=== PATIENT | female | born 1965 | race Caucasian/White ===

== ENCOUNTER 2016-12-18 05:54 | Day surgery (SDC) | payer OTHER ==
[2016-12-15 12:32] VITALS: BMI 31.3
[2016-12-18] MEDS ORDERED: MIDAZOLAM HCL 2 MG/2 ML SINGLE DOSE VIAL ONE ×2 (06:46→07:33)
[2016-12-18] MEDS ORDERED: DEXAMETHASONE SOD PHOSPHATE/PF 10 MG/ML SDV ONE (06:46)
[2016-12-18] MEDS ORDERED: ROPIVACAINE HCL 0.5% 30ML VIAL ONE (06:46)
[2016-12-18] MEDS ORDERED: BUPIVACAINE HCL/EPINEPHRINE/PF 30 ML VIAL IJ ONE (06:57)
[2016-12-18] MEDS ORDERED: EPINEPHrine 1:1,000 1 MG/1 ML - 30ML VIAL (INJECTION) ONE (06:57)
--- NOTE | 2016-12-18 07:11 | HP ---
Admitting History and Physical - Admission Chief Complaint: Left shoulder pain History of Present Illness: 51 yo F presents c/o left shoulder pain that has progressively worsened over the past year. She has some decreased motion and weakness. She has tried injections that have offered little to no relief. She presents today for a planned left shoulder arthroscopy, decompression, distal clavicle excision with Dr. Hernandez. History Source: Patient Limitations to Obtaining History: No Limitations - Past Medical History JUDICIAL CLERK: No: Dementia, Migraine, Seizure Cardiovascular: No: CAD, CHF, HTN, Hyperlipdemia Pulmonary: Yes: Asthma (Asthma in the past, not currently using any medication or inhalers.). No: Cancer, COPD Gastrointestinal: Yes: GERD Renal/: No: Renal Failure, Renal Inusuff ...LMP: 10/24/16 Heme/Onc: No: Anemia Endocrine: No: Diabetes Mellitus, Hyperthyroidism, Hypothyroidism - Past Surgical History Past Surgical History: Yes: Tubal Ligation Additional Past Surgical History: DeQuervain's tendon release (right) - Smoking History Smoking history: Former smoker Have you smoked in the past 12 months: No If you are a former smoker, when did you quit?: 2012 - Alcohol/Substance Use Hx Alcohol Use: Yes (WINE AT NIGHT) Home Medications - Allergies Allergies/Adverse Reactions: Allergies Allergy/AdvReac Type Severity Reaction Status Date / Time Penicillins AdvReac Intermediate N/V AND Verified 12/15/16 12:00 DIARRHEA - Home Medications Home Medications: Ambulatory Orders Cetirizine HCl [Zyrtec -] 10 mg PO HS 12/15/16 Chlordiazepoxide/Clidinium Br [Librax Capsule] 1 each PO DAILY 12/15/16 Diphenoxylate HCl/Atropine [Lomotil Tablet] 1 each PO DAILY PRN 12/15/16 Omeprazole/Sodium Bicarbonate [Zegerid 20mg (RX)] 1 each PO DAILY 12/15/16 Ropinirole HCl [Requip] 0.25 mg PO HS 12/15/16 Review of Systems - Review of Systems Constitutional: reports: No Symptoms. denies: Chills, Fever HENT: reports: No Symptoms Cardiovascular: reports: No Symptoms. denies: Chest Pain, Palpitations Respiratory: reports: No Symptoms. denies: Cough, SOB Gastrointestinal: reports: No Symptoms. denies: Abdominal Pain, Nausea, Vomiting Genitourinary: reports: No Symptoms. denies: Burning Musculoskeletal: reports: Decreased ROM (Left shoulder), Joint Pain (Left shoulder) Integumentary: denies: Bruising, Rash Neurological: reports: No Symptoms. denies: Headache Hematology/Lymphatic: reports: No Symptoms. denies: Easily Bruised, Excessive Bleeding Physical Examination Vital Signs: Vital Signs Temperature 98 F 12/18/16 06:25 Pulse Rate 84 12/18/16 06:25 Respiratory Rate 18 12/18/16 06:25 Blood Pressure 136/80 12/18/16 06:25 O2 Sat by Pulse Oximetry (%) 98 12/18/16 06:25 Constitutional: Yes: Well Nourished, No Distress Eyes: Yes: WNL HENT: Yes: Atraumatic, Normocephalic Cardiovascular: Yes: Regular Rate and Rhythm Respiratory: Yes: Regular, CTA Bilaterally Gastrointestinal: Yes: WNL, Normal Bowel Sounds, Soft Musculoskeletal: Yes: Joint Stiffness (Left shoulder) Extremities: Yes: WNL. No: Calf Tenderness Integumentary: Yes: WNL Neurological: Yes: Alert, Oriented Assessment/Plan 51 to F presents for planned left shoulder arthroscopy, decompression, distal clavicle excision with Dr. Hernandez.
[2016-12-18] MEDS ORDERED: PROPOFOL 20 ML ONE ×3 (07:16→08:14)
[2016-12-18] MEDS ORDERED: ceFAZolin SODIUM 1 GM VIAL ONE (07:47)
--- NOTE | 2016-12-18 08:54 | OP ---
Operative Note - Note: Operative Date: 12/18/16 Pre-Operative Diagnosis: left shoulder ACJ OA, Sub ac bursitis Operation: LEft shoulder arthroscopy, decompression, distal clavicle excision. Post-Operative Diagnosis: Same as Pre-op Surgeon: Cristofer Hernandez Anesthesiologist/THERMODYNAMICS PROFESSOR: Kb Lakhani Anesthesia: General Operative Report Dictated: Yes
--- NOTE | 2016-12-18 08:56 | DS ---
Physical Examination Vital Signs: Vital Signs Temperature 98 F 12/18/16 06:25 Pulse Rate 84 12/18/16 06:25 Respiratory Rate 18 12/18/16 06:25 Blood Pressure 136/80 12/18/16 06:25 O2 Sat by Pulse Oximetry (%) 98 12/18/16 06:25 Discharge Summary Reason For Visit: LEFT SHOULDER AC JOINT OSTEOARTHRITIS Condition: Good - Instructions Diet, Activity, Other Instructions: Post Operative Instructions: Shoulder Arthroscopy Dr Cristofer Hernandez 1. Pain following a Shoulder Arthroscopy is variable and can be significant. Some patients will have more pain than others. You have been provided with a prescription for medication that contains a narcotic. You are not allowed to drive while on this medication. You should NOT take Tylenol (Acetaminophen) when taking the pain medication ( it will result in an overdose). Feel free to take medications such as Ibuprofen or Naprosyn in addition to the pain medicine if you do not have any problems with the NSAID class of medications. 2. Apply ice to the shoulder for 15 minutes every hour. You may continue this for as many days as necessary. 3. You may find sleeping on an incline (reclining chair) to be more comfortable for the first few days. 4 You may remove your sling when the arm is comfortable. 5. You may use the arm as tolerated. 6. You may remove the bandages in 24 hours. You may shower at that point. 7. Place band-aids on the sutures after your shower.Do not put any creams or lotions on the incision until after the sutures are removed. 8. Please call the office to schedule a visit to have your sutures removed. 9. If for any reason you believe you may have an infection or are concerned, please feel free to call me. I can be reached through our office number 24 hours a day. 10. Please call our office with any questions; we will review the surgical findings during your post-operative visit. Disposition: HOME - Home Medications Comprehensive Discharge Medication List: Ambulatory Orders Cetirizine HCl [Zyrtec -] 10 mg PO HS 12/15/16 Chlordiazepoxide/Clidinium Br [Librax Capsule] 1 each PO DAILY 12/15/16 Diphenoxylate HCl/Atropine [Lomotil Tablet] 1 each PO DAILY PRN 12/15/16 Omeprazole/Sodium Bicarbonate [Zegerid 20mg (RX)] 1 each PO DAILY 12/15/16 Ropinirole HCl [Requip] 0.25 mg PO HS 12/15/16
--- NOTE | 2016-12-18 09:14 | SURG ---
Surgery Tape Sewer Note Tape Sewer: Elizabeth Velez PA-C Date of Service: 12/18/16 Diagnosis: left shoulder ACJ OA, Sub ac bursitis Procedure: left shoulder arthroscopy, decompression, distal clavicle excision I was present for the entirety of the operative procedure. For further detail, please refer to operative report. Visit type - Case Type Case Type: Scheduled Admission - Emergency Emergency Visit: No - New patient This patient is new to me today: Yes Date on this admission: 12/18/16 - Critical Care Critical Care patient: No
[2016-12-18] MEDS ORDERED: LACTATED RINGERS SOLUTION 1,000 ML IV SCH (10:30)
[2016-12-18] MEDS ORDERED: ONDANSETRON 4 MG/2 ML VIAL IVPUSH PRN (10:55)
[2016-12-18 11:00] VITALS: PULSE 77
[2016-12-18 11:07] VITALS: BP 118/75; TEMP 97.9
[2016-12-18] MEDS ORDERED: IBUPROFEN 400 MG TABLET (FP) PO ONE (12:00)
--- NOTE | 2016-12-22 16:19 | PATH ---
Surgical Pathology Report Patient Name: POOJA BRITT [facility]. Rec. #: [id number] /Age/Gender: 1965 (Age: 51) / F Account: [id number] Location: [facility] AM[facility] Taken: 12/18/2016 Received: 12/18/2016 Reported: 12/22/2016 Physicians: Cristofer Hernandez M.D. Specimen(s) Received LEFT SHOULDER SHAVINGS Clinical History Left shoulder a.c. joint osteoarthritis Final Diagnosis SHOULDER, LEFT, ARTHROSCOPIC SHAVINGS: BONE, CARTILAGE, COLLAGENOUS TISSUE AND SKELETAL MUSCLE. Electronically Signed Zenaida Chandler M.D. Gross Description Received in formalin, labeled "left shoulder shavings," is a 3.5 x 3.0 x 0.4 cm. aggregate of davis-yellow soft tissue fragments. A off premise service representative portion is submitted in one cassette. saudi/12/18/2016
== END 2016-12-18 10:50 | disposition home or self-care (01) ==
LOC: FASU 05:54
PROVIDERS: ATTEND Orthopaedic Surgery
PROC: 0RBK4ZZ Excision of Left Shoulder Joint, Percutaneous Endoscopic Approach (ICD-10-PCS; 2016-12-18)
PROC: 0PBB4ZZ Excision of Left Clavicle, Percutaneous Endoscopic Approach (ICD-10-PCS; principal; 2016-12-18 08:22)
DX: M19.012 Primary osteoarthritis, left shoulder (principal); M75.52 Bursitis of left shoulder
CPT/HCPCS: 84703; 88304-TC

== ENCOUNTER 2018-04-22 09:54 | Day surgery (SDC) | payer OTHER ==
[2018-04-13 11:43] VITALS: BMI 33.2
[2018-04-22] MEDS ORDERED: ROPIVACAINE HCL 0.5% 30ML VIAL ONE (11:14)
[2018-04-22] MEDS ORDERED: DEXAMETHASONE SOD PHOSPHATE/PF 10 MG/ML SDV ONE (11:14)
[2018-04-22] MEDS ORDERED: MIDAZOLAM HCL 2 MG/2 ML SINGLE DOSE VIAL ONE ×2 (11:14→12:04)
[2018-04-22] MEDS ORDERED: PROPOFOL 20 ML ONE ×4 (11:55→12:43)
[2018-04-22] MEDS ORDERED: DEXAMETHASONE SOD PHOSPHATE 4 MG/1 ML VIAL ONE (12:11)
[2018-04-22] MEDS ORDERED: ONDANSETRON 4 MG/2 ML VIAL ONE (12:11)
[2018-04-22] MEDS ORDERED: KETOROLAC TROMETHAMINE 30 MG/1 ML VIAL ONE ×2 (12:16→13:52)
[2018-04-22] MEDS ORDERED: BUPIVACAINE HCL/EPINEPHRINE/PF 30 ML VIAL IJ ONE (12:17)
[2018-04-22] MEDS ORDERED: BUPIVACAINE 0.25% /EPI 1:200,000 10 ML VIAL INF ONE (12:30)
--- NOTE | 2018-04-22 13:08 | DS ---
Physical Examination Vital Signs: Vital Signs Temperature 98.2 F 04/22/18 10:33 Pulse Rate 82 04/22/18 10:33 Respiratory Rate 16 04/22/18 10:33 Blood Pressure 140/82 04/22/18 10:33 O2 Sat by Pulse Oximetry (%) 96 04/22/18 10:42 Discharge Summary Reason For Visit: ACROMIOCLAVICULAR JOINT, OSTEOARTHRITIS RT SHLD Condition: Good - Instructions Diet, Activity, Other Instructions: Post Operative Instructions: Shoulder Arthroscopy Dr Cristofer Hernandez 1. Pain following a Shoulder Arthroscopy is variable and can be significant. Some patients will have more pain than others. You have been provided with a prescription for medication that contains a narcotic. You are not allowed to drive while on this medication. You can take Tylenol (Acetaminophen) when taking the pain medication. Feel free to take medications such as Ibuprofen or Naprosyn in addition to the pain medicine if you do not have any problems with the NSAID class of medications. 2. Apply ice to the shoulder for 15 minutes every hour. You may continue this for as many days as necessary. 3. You may find sleeping on an incline (reclining chair) to be more comfortable for the first few days. 4. You may remove your sling when the arm is comfortable. 5. You may use the arm as tolerated. 6. You may remove the bandages in 48 hours. You may shower at that point. 7. Place band-aids on the sutures after your shower.Do not put any creams or lotions on the incision until after the sutures are removed. 8. Please call the office to schedule a visit to have your sutures removed. 9. If for any reason you believe you may have an infection or are concerned, please feel free to call me. I can be reached through our office number 24 hours a day. 10. Please call our office with any questions; we will review the surgical findings during your post-operative visit. Disposition: HOME - Home Medications Comprehensive Discharge Medication List: Ambulatory Orders Cetirizine HCl [Zyrtec -] 10 mg PO HS 12/15/16 Chlordiazepoxide/Clidinium Br [Librax Capsule] 1 each PO DAILY 12/15/16 Diphenoxylate HCl/Atropine [Lomotil Tablet] 1 each PO DAILY PRN 12/15/16 Omeprazole/Sodium Bicarbonate [Zegerid 20mg (RX)] 1 each PO DAILY 12/15/16 Ropinirole HCl [Requip] 0.25 mg PO HS 12/15/16 Sertraline HCl [Zoloft -] 50 mg PO DAILY 04/13/18
--- NOTE | 2018-04-22 13:08 | OP ---
Operative Note - Note: Operative Date: 04/22/18 Pre-Operative Diagnosis: right shoulder AC Joint OA, SubAc Bursitis Operation: RSA Decompression, Distal Clavicle Excision Post-Operative Diagnosis: Same as Pre-op Surgeon: Cristofer Hernandez Outer Diameter Technician: Spenser Easley Anesthesiologist/RESIDENTIAL NURSE: Kb Lakhani Anesthesia: General Operative Report Dictated: Yes
[2018-04-22 14:04] VITALS: TEMP 97.9
--- NOTE | 2018-04-22 14:56 | SURG ---
Surgery Supercharger Mechanic Note Supercharger Mechanic: Spenser Easley PA-C Date of Service: 04/22/18 Diagnosis: right shoulder AC Joint OA, SubAc Bursitis Procedure: Right shoulder arthroscopy, Decompression, Distal Clavicle Excision I was present for the entirety of the operative procedure. For further detail, please refer to operative report. Visit type - Case Type Case Type: Scheduled - New patient This patient is new to me today: Yes Date on this admission: 04/22/18
[2018-04-22 15:48] VITALS: BP 134/79; PULSE 92
--- NOTE | 2018-04-27 16:26 | PATH ---
Surgical Pathology Report Patient Name: POOJA BRITT [facility]. Rec. #: [id number] /Age/Gender: 1965 (Age: 52) / F Account: [id number] Location: [facility] AMBULAT[facility] Taken: 04/22/2018 Received: 04/22/2018 Reported: 04/27/2018 Physicians: Cristofer Hernandez M.D. Specimen(s) Received RIGHT SHOULDER SHAVINGS Clinical History Acromioclavicular joint, osteoarthritis right shoulder Final Diagnosis SHOULDER, RIGHT, ARTHROSCOPIC SHAVINGS: CARTILAGE, BONE, FIBROCOLLAGENOUS TISSUE AND SKELETAL MUSCLE. Electronically Signed Zenaida Chandler M.D. Gross Description Received in formalin, labeled "right shoulder shavings," is a 3.0 x 2.6 x 0.3 cm. aggregate of davis-yellow soft tissue fragments. A education courses sales representative portion is submitted in one cassette. 04/25/201804/25/2018
== END 2018-04-22 14:40 | disposition home or self-care (01) ==
LOC: FASU 09:54
PROVIDERS: ATTEND Orthopaedic Surgery
PROC: 0RBJ4ZZ Excision of Right Shoulder Joint, Percutaneous Endoscopic Approach (ICD-10-PCS; 2018-04-22)
PROC: 0PB94ZZ Excision of Right Clavicle, Percutaneous Endoscopic Approach (ICD-10-PCS; principal; 2018-04-22 12:00)
DX: M19.011 Primary osteoarthritis, right shoulder (principal); M75.51 Bursitis of right shoulder
CPT/HCPCS: 84703; 88304-TC